=== PATIENT | male | born 1975 | race Caucasian/White ===

== ENCOUNTER 2020-03-29 22:22 | Emergency (ER) | payer BC ==
[~2020-03-29] VITALS: Ht 175.3 cm; Wt 83.9 kg
[~2020-03-29 22:22] MED LIST: NOR10T PO
[2020-03-29 22:40] VITALS: BP 130/96
== END 2020-03-30 00:10 | disposition left against medical advice (07) ==
LOC: ER 22:22
DX: R33.9 Retention of urine, unspecified (principal); Z53.21 Procedure and treatment not carried out due to patient leaving prior to being seen by health care provider